=== PATIENT | female | born 1995 | race African-American/Black ===

== ENCOUNTER 2017-05-20 19:42 | Observation (INO) | payer MEDICAID ==
[~2017-05-20] VITALS: Ht 154.9 cm; Wt 78.0 kg
[2017-05-20] MEDS ORDERED: PNV1TABL76 PO (19:58)
[2017-05-21] MEDS ORDERED: PNV1TABL76 MT (00:29)
== END 2017-05-21 02:40 | disposition home or self-care (01) ==
LOC: L&D 19:42
PROVIDERS: ADMIT Specialist; ATTEND Specialist
DX: O26.893 Other specified pregnancy related conditions, third trimester (principal); M54.9 Dorsalgia, unspecified; M25.559 Pain in unspecified hip; Z3A.32 32 weeks gestation of pregnancy
CPT/HCPCS: 76805; 76818; 96365; 99281; G0378; 96360

== ENCOUNTER 2021-11-16 18:56 | Emergency (ER) | payer MEDICAID ==
[~2021-11-16] VITALS: Ht 167.6 cm; Wt 78.0 kg
[~2021-11-16 18:56] MED LIST: PNV1TABL76 MT; PNV1TABL76 PO
[2021-11-16] MEDS ORDERED: FAMOTIDINE 20MG/2ML VIAL IV ONE (21:00)
[2021-11-16] MEDS ORDERED: SODIUM CHLORIDE 0.9% 1,000 ML IV ONE (21:00)
[2021-11-16] MEDS ORDERED: KETOROLAC 15MG/ML VIAL IV ONE (21:00)
[2021-11-16 21:21] LABS: HEMATOCRIT. 37.8 % (36.0-48.0); HEMOGLOBIN. 12.1 g/dL (12.0-16.0); MEAN CORPUSCULAR HEMOGLOBIN 24.7 pg (28.0-32.0); MEAN CORPUSCULAR VOLUME 76.8 fL (81.0-99.0); MEAN PLATELET VOLUME 7.9 fl (7.4-10.4); PLATELET 361 x1000/uL (130-400); RED BLOOD CELL COUNT 4.92 mill/uL (4.2-5.4); RED CELL DISTRIBUTION WIDTH 14.8 % (11.6-14.6)
[2021-11-16 21:22] LABS: CHLORIDE 105 mEq/L (98-107)
[2021-11-16 21:25] LABS: ETHANOL BLOOD < 10 mg/dL
[2021-11-16 21:27] LABS: HCG SCREEN NEGATIVE
[2021-11-16] MEDS ORDERED: KETOROLAC 15MG/ML VIAL IV NR (21:45)
[2021-11-16] MEDS ORDERED: METOCLOPRAMIDE HCL 10MG/2ML VIAL IV ONE (21:45)
[2021-11-16 22:26] LABS: CLARITY URINE CLOUDY (CLEAR); COLOR URINE RED (YELLOW); KETONES URINE TRACE (NEGATIVE); LEUKOCYTE ESTERASE URINE 2+ (NEGATIVE); NITRITE URINE NEGATIVE (NEGATIVE); OCCULT BLOOD URINE 3+ (NEGATIVE); PH URINE 6.5 (4.5-8.0); PROTEIN URINE 2+ (NEGATIVE); SPECIFIC GRAVITY URINE 1.024 (1.005-1.030); UROBILINOGEN URINE 0.2 E.U./dL (0.2-1.0)
[2021-11-16 22:31] LABS: PLATELET ESTIMATE NORMAL
[2021-11-16] MEDS ORDERED: CIPR-263 MT (23:45)
[2021-11-17 00:11] VITALS: BP 114/60
== END 2021-11-17 00:12 | disposition home or self-care (01) ==
LOC: ER 18:56
DX: N39.0 Urinary tract infection, site not specified (principal)
CPT/HCPCS: 36415; 80053; 80320; 81003; 83690; 84703; 85025; 93005; 96361; 96374; 96375; 99284; J1885; J2765; J3490; J7030; G0480

== ENCOUNTER 2022-04-20 05:44 | Emergency (ER) | payer MEDICAID ==
[~2022-04-20] VITALS: Ht 154.9 cm; Wt 80.0 kg
[~2022-04-20 05:44] MED LIST changes: +CIPR-263 MT
[2022-04-20] MEDS ORDERED: KETOROLAC 60MG/2ML VIAL IM ONE (08:15)
[2022-04-20 08:33] VITALS: BP 110/74
[2022-04-20 08:56] LABS: BASOPHILS % 0.5 % (0.0-2.0); EOSINOPHILS % 0.4 % (0.0-5.0); HEMATOCRIT. 37.8 % (36.0-48.0); HEMOGLOBIN. 11.9 g/dL (12.0-16.0); LYMPHOCYTES % 20.8 % (20.0-50.0); MEAN CORPUSCULAR HEMOGLOBIN 24.6 pg (28.0-32.0); MEAN CORPUSCULAR VOLUME 78.2 fL (81.0-99.0); MEAN PLATELET VOLUME 7.7 fl (7.4-10.4); NEUTROPHILS % 72.3 % (40.0-76.0); PLATELET 407 x1000/uL (130-400); RED BLOOD CELL COUNT 4.83 mill/uL (4.2-5.4); RED CELL DISTRIBUTION WIDTH 15.1 % (11.6-14.6)
[2022-04-20 08:58] LABS: CLARITY URINE CLEAR (CLEAR); COLOR URINE YELLOW (YELLOW); KETONES URINE NEGATIVE (NEGATIVE); LEUKOCYTE ESTERASE URINE NEGATIVE (NEGATIVE); NITRITE URINE NEGATIVE (NEGATIVE); OCCULT BLOOD URINE NEGATIVE (NEGATIVE); PH URINE 7.5 (4.5-8.0); PROTEIN URINE NEGATIVE (NEGATIVE); SPECIFIC GRAVITY URINE 1.007 (1.005-1.030); UROBILINOGEN URINE 0.2 E.U./dL (0.2-1.0)
[2022-04-20 09:02] LABS: CHLORIDE 106 mEq/L (98-107)
[2022-04-20] MEDS ORDERED: IBUP-2029 MT (09:08)
[2022-04-20] MEDS ORDERED: ACETAMINOPHEN 325MG TABLET PO ONE (09:15)
== END 2022-04-20 09:27 | disposition home or self-care (01) ==
LOC: ER 05:44
DX: R10.33 Periumbilical pain (principal); Z98.890 Other specified postprocedural states
CPT/HCPCS: 36415; 74176; 80053; 81003; 81025; 85025; 96372; 99284; J1885

== ENCOUNTER 2024-03-03 13:13 | Emergency (ER) | payer MEDICAID ==
[~2024-03-03] VITALS: Ht 154.9 cm; Wt 73.5 kg
[~2024-03-03 13:13] MED LIST changes: +IBUP-2029 MT
[2024-03-03 13:27] VITALS: O2SAT 100
[2024-03-03 14:07] LABS: CLARITY URINE CLEAR (CLEAR); COLOR URINE YELLOW (YELLOW); GLUCOSE URINE NEGATIVE (NEGATIVE); KETONES URINE NEGATIVE (NEGATIVE); LEUKOCYTE ESTERASE URINE NEGATIVE (NEGATIVE); NITRITE URINE NEGATIVE (NEGATIVE); OCCULT BLOOD URINE NEGATIVE (NEGATIVE); PROTEIN URINE NEGATIVE (NEGATIVE); SPECIFIC GRAVITY URINE 1.009 (1.005-1.030); UROBILINOGEN URINE 0.2 E.U./dL (0.2-1.0)
[2024-03-03 14:54] LABS: BASOPHILS % 0.6 % (0.0-2.0); DIFFERENTIAL COMMENT 0; EOSINOPHILS % 0.7 % (0.0-5.0); HEMATOCRIT. 33.9 % (36.0-48.0); HEMOGLOBIN. 10.5 g/dL (12.0-16.0); LYMPHOCYTES % 28.9 % (20.0-50.0); MEAN CORPUSCULAR HEMOGLOBIN 22.2 pg (28.0-32.0); MEAN CORPUSCULAR HGB CONC 30.9 g/dL (31.0-37.0); MEAN CORPUSCULAR VOLUME 71.6 fL (81.0-99.0); MEAN PLATELET VOLUME 7.9 fl (7.4-10.4); MONOCYTES % 6.1 % (2.0-8.0); NEUTROPHILS % 63.7 % (40.0-76.0); PLATELET 397 x1000/uL (130-400); RED BLOOD CELL COUNT 4.72 mill/uL (4.2-5.4); RED CELL DISTRIBUTION WIDTH 21.4 % (11.6-14.6); WHITE BLOOD COUNT 7.3 x1000/uL (4.5-11.0)
[2024-03-03 15:02] LABS: CARBON DIOXIDE 24 mEq/L (21-32); CHLORIDE 104 mEq/L (98-107); POTASSIUM 3.5 mEq/L (3.5-5.1); SODIUM 134 mEq/L (136-145)
[2024-03-03 15:03] LABS: CALCIUM 10.1 mg/dL (8.7-10.4)
[2024-03-03 15:07] LABS: CREATININE 0.6 mg/dL (0.6-1.0)
[2024-03-03 15:08] LABS: GLUCOSE 88 mg/dL (70-105); UREA NITROGEN BLOOD 5 mg/dL (9-23)
[2024-03-03 15:09] LABS: ALANINE AMINOTRANSFERASE 11 IU/L (10-49); ALBUMIN 4.3 g/dL (3.2-4.8); ASPARTATE AMINOTRANSFERASE 14 IU/L (<34)
[2024-03-03 15:10] LABS: BILIRUBIN TOTAL 0.3 mg/dL (0.1-1.0); PROTEIN TOTAL 7.4 g/dL (6.0-8.3)
[2024-03-03 15:21] LABS: B-HCG QUANTITATIVE 34592 mIU/mL (<3); BILIRUBIN DIRECT < 0.1 mg/dL (<=3.0)
[2024-03-03] MEDS ORDERED: LIDO700A15 TP (15:38)
[2024-03-03] MEDS: ACETAMINOPHEN 325MG TABLET PO ONE (16:08)
[2024-03-03 16:15] VITALS: BP 125/80; PULSE 79; RESP 18; TEMP 98.5
== END 2024-03-03 16:17 | disposition home or self-care (01) ==
LOC: ER 13:13
DX: O26.891 Other specified pregnancy related conditions, first trimester (principal); M54.9 Dorsalgia, unspecified; Z3A.01 Less than 8 weeks gestation of pregnancy
CPT/HCPCS: 36415; 76801; 80048; 80076; 81003; 81025; 84702; 85025; 86850; 86900; 99284